=== PATIENT | female | born 1975 | race Caucasian/White ===

== ENCOUNTER → 2018-04-02 09:47 | Outpatient (CLI) | payer OTHER | END | disposition home or self-care (01) | LOC: LAB 09:47 | DX: D55.0 Anemia due to glucose-6-phosphate dehydrogenase [G6PD] deficiency (principal); D68.0 Von Willebrand disease; D50.0 Iron deficiency anemia secondary to blood loss (chronic); D51.1 Vitamin B12 deficiency anemia due to selective vitamin B12 malabsorption with proteinuria; N93.9 Abnormal uterine and vaginal bleeding, unspecified; K31.83 Achlorhydria; E04.2 Nontoxic multinodular goiter; E03.8 Other specified hypothyroidism; D68.8 Other specified coagulation defects ==

== ENCOUNTER 2020-07-05 14:29 | Outpatient (CLI) | payer OTHER | END 2020-07-05 14:42 | disposition home or self-care (01) | LOC: LAB 14:29 | PROVIDERS: ATTEND Internal Medicine Hematology & Oncology | DX: D50.8 Other iron deficiency anemias (principal); I10 Essential (primary) hypertension; R74.02 Elevation of levels of lactic acid dehydrogenase [LDH]; K76.89 Other specified diseases of liver; D68.8 Other specified coagulation defects; D68.0 Von Willebrand disease; R79.89 Other specified abnormal findings of blood chemistry; D50.0 Iron deficiency anemia secondary to blood loss (chronic); D51.1 Vitamin B12 deficiency anemia due to selective vitamin B12 malabsorption with proteinuria; D51.0 Vitamin B12 deficiency anemia due to intrinsic factor deficiency; E03.8 Other specified hypothyroidism; E06.3 Autoimmune thyroiditis; E55.9 Vitamin D deficiency, unspecified; D55.0 Anemia due to glucose-6-phosphate dehydrogenase [G6PD] deficiency; N93.9 Abnormal uterine and vaginal bleeding, unspecified; K31.83 Achlorhydria; E04.2 Nontoxic multinodular goiter ==

== ENCOUNTER 2021-09-17 10:29 | Outpatient (CLI) | payer OTHER | END 2021-09-17 10:30 | disposition home or self-care (01) | LOC: LAB 10:29 | PROVIDERS: ATTEND Internal Medicine Hematology & Oncology | DX: D50.8 Other iron deficiency anemias (principal); R79.9 Abnormal finding of blood chemistry, unspecified; I10 Essential (primary) hypertension; R74.02 Elevation of levels of lactic acid dehydrogenase [LDH]; K76.89 Other specified diseases of liver; D51.8 Other vitamin B12 deficiency anemias; E55.9 Vitamin D deficiency, unspecified; D68.0 Von Willebrand disease; D68.8 Other specified coagulation defects; C56.9 Malignant neoplasm of unspecified ovary; R97.1 Elevated cancer antigen 125 [CA 125]; R97.0 Elevated carcinoembryonic antigen [CEA]; D55.0 Anemia due to glucose-6-phosphate dehydrogenase [G6PD] deficiency; D50.0 Iron deficiency anemia secondary to blood loss (chronic); D51.1 Vitamin B12 deficiency anemia due to selective vitamin B12 malabsorption with proteinuria; K31.83 Achlorhydria; E04.2 Nontoxic multinodular goiter; E03.9 Hypothyroidism, unspecified ==

== ENCOUNTER 2023-09-27 07:54 | Outpatient (CLI) | payer OTHER ==
[2023-09-27 09:51] LABS: HEMATOCRIT 37.1 % (36.0-45.00); HEMOGLOBIN 12.3 g/dL (12.0-15.00); MEAN CELL VOLUME 80.5 fL (80.00-100.00); MEAN CORPUSCULAR HEMOGLOBIN 26.7 pg (27.00-32.0); MEAN CORPUSCULAR HGB CONC 33.1 g/dl (32.0-36.0); PLATELET COUNT 284 K/uL (150-450); RED BLOOD COUNT 4.61 M/uL (4.00-6.00)
[2023-09-27 10:17] LABS: INR 1.04; PARTIAL THROMBOPLASTIN TIME 31.5 SECONDS (22.0-34.0); PROTHROMBIN TIME 10.9 SECONDS (9.0-11.5)
[2023-09-27 10:22] LABS: COL EPI 136 SECONDS (82-175)
[2023-09-27 10:42] LABS: BILIRUBIN TOTAL 0.37 mg/dL (0.3-1.2); CALCIUM 9.2 mg/dL (8.5-10.1); CREATININE SERUM 0.74 mg/dL (0.55-1.02); GFR 84.12; GLOBULINA 3.4 G/DL (2.4-3.5); POTASSIUM 4.42 mEq/L (3.5-5.1); TOTAL PROTEIN 7.4 gm/dL (6.4-8.2)
[2023-09-28 12:18] LABS: FOLIC ACID > 20.00 ng/ml (4.78-20); VITAMIN D3 25 HYDROXY 31.47 ng/ml (30-120)
[2023-09-29 11:30] LABS: PLATELET ESTIMATE NORMAL (NORMAL)
== END 2023-09-27 07:57 | disposition home or self-care (01) ==
LOC: LAB 07:54
PROVIDERS: ATTEND Internal Medicine Hematology & Oncology
DX: D55.0 Anemia due to glucose-6-phosphate dehydrogenase [G6PD] deficiency (principal); D68.00 Von Willebrand disease, unspecified; D50.0 Iron deficiency anemia secondary to blood loss (chronic); D51.1 Vitamin B12 deficiency anemia due to selective vitamin B12 malabsorption with proteinuria; N93.9 Abnormal uterine and vaginal bleeding, unspecified; K31.83 Achlorhydria; E04.2 Nontoxic multinodular goiter; E03.9 Hypothyroidism, unspecified; R79.9 Abnormal finding of blood chemistry, unspecified; K76.89 Other specified diseases of liver; E55.9 Vitamin D deficiency, unspecified; C56.9 Malignant neoplasm of unspecified ovary; D68.8 Other specified coagulation defects